=== PATIENT | male | born 1950 | race Caucasian/White ===

== ENCOUNTER → 2018-07-11 | Outpatient (CLI) | payer OTHER ==
[~2018-07-11] MED LIST: ATORVASTATIN CA40 MG PO; METFORMIN HCL500 MG PO; VITAMIN D1000 UNI1 PO
--- NOTE | ~2018-07-11 | EKG ---
[address] [address] ELECTROCARDIOGRAM REPORT Name: MANJIT DONOHUE Room #: REG CLI MJessica#: [id number] Admission: 07/11/18 Attend Phys: Rhett Matute MD Discharge: Date of : 50 Report #: [id number] THIS REPORT FOR: //name// [facility] Test Date: 2018-07-11 Test Time: 13:22:39 Pat Name: MANJIT DONOHUE Department: Room: Gender: Specialist Physicians: KEIKO : 1950 Requested By: Rhett Matute Order Number: [id number] MD: Gatito Kaba Measurements Intervals [place] Rate: 95 P: 19 MN: 150 QRS: -47 QRSD: 92 T: 37 QT: 337 QTc: 424 Interpretive Statements Sinus rhythm Baseline wander in lead(s) III,V1,V4,V6 No previous ECG available for comparison Electronically Signed On 07-11-2018 13:40:23 ADMINISTRATIVE JUDGE by Gatito Kaba [email or web address] <ELECTRONICALLY SIGNED> By: Gatito Kaba MD 07/11/18 1340 1322 1322 Gatito Kaba MD /MINDY
== END ==
LOC: LITH 12:53
DX: N20.0 Calculus of kidney (principal); N40.0 Benign prostatic hyperplasia without lower urinary tract symptoms; I10 Essential (primary) hypertension; E78.5 Hyperlipidemia, unspecified; E11.9 Type 2 diabetes mellitus without complications; G47.33 Obstructive sleep apnea (adult) (pediatric); Z90.49 Acquired absence of other specified parts of digestive tract; Z98.890 Other specified postprocedural states; Z79.899 Other long term (current) drug therapy